=== PATIENT | female | born 2000 | race Caucasian/White ===

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

== ENCOUNTER 2021-05-03 18:28 | Emergency (ER) | payer OTHER ==
[2021-05-03 18:38] VITALS: BP 116/79; PULSE 93; TEMP 98.3; BMI 26.0
[2021-05-03] MEDS ORDERED: FAMOTIDINE 10 MG TABLET PO ONE (19:31)
[2021-05-03] MEDS ORDERED: MAG HYDROX/AL HYDROX/SIMETH 30 ML UNIT-DOSE CUP PO ONE (19:31)
[2021-05-03] MEDS ORDERED: ONDANSETRON 4 MG TABLET PO ONE (19:31)
[2021-05-03] MEDS ORDERED: FAMOTIDINE 20 MG TABLET ONE (19:41)
[2021-05-03] MEDS ORDERED: ONDANSETRON *ODT* 4 MG TABLET ONE (19:41)
[2021-05-03] MEDS ORDERED: MAG HYDROX/AL HYDROX/SIMETH 30 ML UNIT-DOSE CUP ONE (19:41)
[2021-05-03 19:55] LABS: EPI CELLS >36 /uL (0-25.1); HCG,QUALITATIVE URINE Negative; HYALINE CASTS 12 /uL (0-3.1); PH,URINE 5.5 (5.0-8.0); URINE APPEARANCE TURBID; URINE BACTERIA 1201 /uL (0-1359); URINE BILIRUBIN 1+ (NEGATIVE); URINE COLOR DK YELLOW; URINE GLUCOSE (UA) NEGATIVE (NEGATIVE); URINE KETONE 2+ (NEGATIVE); URINE LEUK ESTERASE TRACE (NEGATIVE); URINE NITRITE NEGATIVE (NEGATIVE); URINE PROTEIN 2+ (NEGATIVE); URINE WBC 44 /uL (0-25.8)
[2021-05-03 20:58] LABS: BASO % 0.2 % (0-2.0); EOS % 0.2 % (0-4.5); HEMATOCRIT 41.7 % (32.4-45.2); HEMOGLOBIN 14.3 GM/dL (10.7-15.3); LYMPH % 19.4 % (8-40); MCH 29.5 pg (25.7-33.7); MCHC 34.4 g/dl (32.0-36.0); MEAN CELL VOLUME 85.8 fl (80-96); MEAN PLT VOLUME 8.1 fl (7.5-11.1); MONO % 6.2 % (3.8-10.2); PLATELET COUNT 276 10^3/uL (134-434); RBC 4.87 M/mm3 (3.60-5.2); RDW 13.2 % (11.6-15.6); WHITE BLOOD COUNT 8.2 K/mm3 (4.0-10.0)
[2021-05-03 21:17] LABS: CALCIUM 9.3 mg/dL (8.5-10.1)
[2021-05-03 21:18] LABS: ALBUMIN 4.2 g/dl (3.4-5.0); BLOOD UREA NITROGEN 9.7 mg/dL (7-18)
[2021-05-03 21:21] LABS: CREATININE 0.7 mg/dL (0.55-1.3)
[2021-05-03 21:23] LABS: BILIRUBIN,TOTAL 0.5 mg/dL (0.2-1); TOT PROT 7.6 g/dl (6.4-8.2)
[2021-05-03 21:55] LABS: URINE RBC 543.1 /uL (0-23.9); YEAST NONE SEEN (NEGATIVE)
== END 2021-05-03 21:43 | disposition home or self-care (01) ==
LOC: JER 18:28
DX: R11.2 Nausea with vomiting, unspecified (principal); R10.84 Generalized abdominal pain; N30.00 Acute cystitis without hematuria
CPT/HCPCS: 36415; 76705-TC; 80053; 81003; 83690; 84443; 84703; 85025; 99284-25